=== PATIENT | male | born 1940 | race Caucasian/White ===

== ENCOUNTER 2018-06-01 09:44 | Inpatient (IN) ==
[2018-06-01] MEDS ORDERED: ASPIRIN 325 MG TABLET PO STA ×2 (10:22→11:11)
[2018-06-01] MEDS ORDERED: ONDANSETRON 4 MG/2 ML VIAL IV STA (10:22)
[2018-06-01 10:30] LABS: Basophils # 0.1 10*3/uL (0.0-0.2); Basophils % 0.4 % (0.0-0.8); Eosinophils # 0.5 10*3/uL (0.0-0.87); Eosinophils % 3.9 % (0.00-10.9); Hemoglobin 9.6 GM/DL (14.0-18.0); Immature Granulocytes % 0.5 %; Immature Granulocytes Absolute 0.06 #; Mean Corpuscular Hemoglobin 30 PG (27-34); Mean Corpuscular Volume 98.1 FL (87-102); Mean Platelet Volume 10.2 FL (9.6-12.0); Monocytes % 8.8 % (1.7-12.7); Neutrophils # 8.9 10*3/uL (1.4-7.4); Neutrophils % 77.4 % (38.7-73.9); Platelet Count 273 T/CUMM (130-400); Red Blood Count 3.16 MC/CUMM (3.8-5.5); Red Cell Distribution Width 13.2 % (9.3-17.3); White Blood Count 11.5 T/CUMM (4-12)
[2018-06-01 10:42] LABS: Albumin 3.3 G/DL (3.4-5.0); Bilirubin,Total 0.5 MG/DL (0.2-1.0); Calcium 8.5 MG/DL (8.5-10.1); Osmolality,Calculated 285.1 MOS/KG (273-304); Potassium 5.1 MMOL/L (3.5-5.1); Total Protein 7.4 G/DL (6.4-8.3)
[2018-06-01 10:43] LABS: PT Patient Result 10.7 SECS; Partial Thromboplastin Time 28.6 SECS (0-40)
[2018-06-01] MEDS ORDERED: NITROGLYCERIN 2% OINT 1 INCH/GM PACK TOP STA (11:11)
[2018-06-01] MEDS ORDERED: FUROSEMIDE 40 MG/4 ML VIAL IV STA (11:15)
[2018-06-01] MEDS ORDERED: PROMETHAZINE 25 MG/1 ML VIAL IM PRN (11:43)
[2018-06-01 11:48] LABS: Apearance,Urine CLEAR (Clear); Bilirubin,Urine Negative (Negative); Blood, Urine Negative (Negative); Glucose,Urine (UA) Negative (Negative); Ketones,Urine Negative (Negative); Mucus,Urine Occasional /LPF (Occasional); Nitrite,Urine Negative (Negative); Protein,Urine Negative; RBC,Urine <1 /HPF (0-4); Urine Color Straw (Yellow); Urine Specific Gravity 1.005 (1.001-1.035); Urine Urobilinogen < 2.0 EU/DL (0.2-1.0); WBC,Urine 1 /HPF (0-6)
[2018-06-01] MEDS ORDERED: DEXTROSE 50% 25 GM/50 ML VIAL IV PRN (12:53)
[2018-06-01] MEDS ORDERED: GLUCAGON 1 MG VIAL IM PRN (12:53)
[2018-06-01] MEDS: INSULIN LISPRO 100 UNIT/ML SUBCUT SCH ×2 (17:09→21:26)
[2018-06-01] MEDS: FUROSEMIDE 40 MG/4 ML VIAL IV SCH (17:10)
[2018-06-01] MEDS: ATORVASTATIN 40 MG TABLET PO SCH (21:18)
[2018-06-01] MEDS: CARVEDILOL 6.25 MG TABLET PO SCH (21:18)
[2018-06-01] MEDS: ENOXAPARIN 30 MG/0.3 ML SYRINGE SUBCUT SCH (21:19)
[2018-06-02 05:38] LABS: Basophils % 0.5 % (0.0-0.8); Eosinophils # 0.4 10*3/uL (0.0-0.87); Eosinophils % 5.9 % (0.00-10.9); Hematocrit 28.4 VOL% (42.0-52.0); Hemoglobin 8.8 GM/DL (14.0-18.0); Immature Granulocytes % 0.5 %; Immature Granulocytes Absolute 0.04 #; Lymphocytes # 1.2 10*3/uL (1.4-4.0); Mean Corpuscular Hemoglobin 31 PG (27-34); Mean Platelet Volume 10.4 FL (9.6-12.0); Monocytes # 0.8 10*3/uL (0.11-0.8); Monocytes % 11.4 % (1.7-12.7); Neutrophils # 4.8 10*3/uL (1.4-7.4); Neutrophils % 65.7 % (38.7-73.9); Platelet Count 230 T/CUMM (130-400); Red Blood Count 2.87 MC/CUMM (3.8-5.5); Red Cell Distribution Width 13.3 % (9.3-17.3); White Blood Count 7.3 T/CUMM (4-12)
[2018-06-02 06:12] LABS: Bilirubin,Total 0.8 MG/DL (0.2-1.0); Calcium 8.5 MG/DL (8.5-10.1); Potassium 5.1 MMOL/L (3.5-5.1); Risk Ratio 1.62; Thyroid Stimulating Hormone 1.58 uIU/ml (0.358-3.74); Total Protein 7.5 G/DL (6.4-8.3)
[2018-06-02] MEDS: INSULIN LISPRO 100 UNIT/ML SUBCUT SCH ×4 (07:43→22:15)
[2018-06-02] MEDS: FUROSEMIDE 40 MG/4 ML VIAL IV SCH ×2 (07:57→16:18)
[2018-06-02] MEDS: LISINOPRIL 20 MG TABLET PO SCH (08:02)
[2018-06-02] MEDS: PANTOPRAZOLE 40 MG TABLET PO SCH (08:03)
[2018-06-02] MEDS: AMIODARONE 200 MG TABLET PO SCH (08:03)
[2018-06-02] MEDS: ISOSORBIDE MONONITRATE 30 MG TABLET PO SCH (08:03)
[2018-06-02] MEDS: CARVEDILOL 6.25 MG TABLET PO SCH ×2 (08:03→22:14)
[2018-06-02] MEDS: ASPIRIN EC 81 MG TABLET PO SCH (08:03)
[2018-06-02] MEDS: MAGNESIUM HYDROXIDE SUSP 30 ML UDCUP PO PRN ×2 (09:08→22:14)
[2018-06-02 14:02] LABS: Basophils # 0.1 10*3/uL (0.0-0.2); Basophils % 0.6 % (0.0-0.8); Eosinophils # 0.4 10*3/uL (0.0-0.87); Eosinophils % 5.6 % (0.00-10.9); Hematocrit 28.5 VOL% (42.0-52.0); Immature Granulocytes % 0.4 %; Immature Granulocytes Absolute 0.03 #; Lymphocytes # 0.9 10*3/uL (1.4-4.0); Lymphocytes % 11.4 % (21.2-54.2); Mean Corpuscular HGB Conc 31.6 GM/DL (32-36); Mean Corpuscular Hemoglobin 31 PG (27-34); Monocytes # 0.8 10*3/uL (0.11-0.8); Monocytes % 9.7 % (1.7-12.7); Neutrophils # 5.6 10*3/uL (1.4-7.4); Neutrophils % 72.3 % (38.7-73.9); Platelet Count 248 T/CUMM (130-400); Red Blood Count 2.88 MC/CUMM (3.8-5.5); Red Cell Distribution Width 13.4 % (9.3-17.3); White Blood Count 7.7 T/CUMM (4-12)
[2018-06-02 14:40] LABS: Folate 11.4 NG/ML (5.4-24.0); Vitamin B12 384 PG/ML (211-911)
[2018-06-02] MEDS: ENOXAPARIN 30 MG/0.3 ML SYRINGE SUBCUT SCH (22:14)
[2018-06-02] MEDS: ATORVASTATIN 40 MG TABLET PO SCH (22:14)
[2018-06-03 06:26] LABS: Basophils % 0.5 % (0.0-0.8); Eosinophils # 0.4 10*3/uL (0.0-0.87); Eosinophils % 4.3 % (0.00-10.9); Hematocrit 27.8 VOL% (42.0-52.0); Hemoglobin 8.7 GM/DL (14.0-18.0); Immature Granulocytes % 0.5 %; Immature Granulocytes Absolute 0.04 #; Lymphocytes # 0.7 10*3/uL (1.4-4.0); Lymphocytes % 8.5 % (21.2-54.2); Mean Corpuscular HGB Conc 31.3 GM/DL (32-36); Mean Corpuscular Hemoglobin 31 PG (27-34); Mean Corpuscular Volume 99.3 FL (87-102); Mean Platelet Volume 10.4 FL (9.6-12.0); Monocytes % 11.5 % (1.7-12.7); Neutrophils # 6.3 10*3/uL (1.4-7.4); Neutrophils % 74.7 % (38.7-73.9); Platelet Count 207 T/CUMM (130-400); Red Cell Distribution Width 13.1 % (9.3-17.3); White Blood Count 8.5 T/CUMM (4-12)
[2018-06-03 06:45] LABS: Calcium 8.6 MG/DL (8.5-10.1); Osmolality,Calculated 287.2 MOS/KG (273-304); Potassium 5.1 MMOL/L (3.5-5.1)
[2018-06-03] MEDS: INSULIN LISPRO 100 UNIT/ML SUBCUT SCH ×4 (07:25→22:16)
[2018-06-03] MEDS: FUROSEMIDE 40 MG/4 ML VIAL IV SCH (08:57)
[2018-06-03] MEDS: LISINOPRIL 20 MG TABLET PO SCH (09:00)
[2018-06-03] MEDS: PANTOPRAZOLE 40 MG TABLET PO SCH (09:00)
[2018-06-03] MEDS: ASPIRIN EC 81 MG TABLET PO SCH (09:00)
[2018-06-03] MEDS: CARVEDILOL 6.25 MG TABLET PO SCH ×2 (09:00→22:16)
[2018-06-03] MEDS: ISOSORBIDE MONONITRATE 30 MG TABLET PO SCH (09:00)
[2018-06-03] MEDS: AMIODARONE 200 MG TABLET PO SCH (09:07)
[2018-06-03 09:20] LABS: Hemoglobin A1 (Alkaline) 97.9 % (96.5-98.5); Hemoglobin A2 (Alkaline) 2.1 % (1.5-3.5)
[2018-06-03 09:45] LABS: Sedimentation Rate-Westergren 110 MM/HR (0-20)
[2018-06-03 10:51] LABS: Folate 10.2 NG/ML (5.4-24.0)
[2018-06-03 11:59] LABS: % Iron Saturation 14.7 % (18-50)
[2018-06-03 12:33] LABS: Apearance,Urine CLEAR (Clear); Bilirubin,Urine Negative (Negative); Blood, Urine Negative (Negative); Glucose,Urine (UA) Negative (Negative); Ketones,Urine Negative (Negative); Mucus,Urine Occasional /LPF (Occasional); Nitrite,Urine Negative (Negative); Protein,Urine Negative; RBC,Urine <1 /HPF (0-4); Urine Color Straw (Yellow); Urine Specific Gravity 1.006 (1.001-1.035); Urine Urobilinogen < 2.0 EU/DL (0.2-1.0)
[2018-06-03] MEDS: MAGNESIUM HYDROXIDE SUSP 30 ML UDCUP PO PRN (15:03)
[2018-06-03] MEDS: ENOXAPARIN 30 MG/0.3 ML SYRINGE SUBCUT SCH (22:16)
[2018-06-03] MEDS: ATORVASTATIN 40 MG TABLET PO SCH (22:16)
[2018-06-04 04:40] LABS: Basophils % 0.4 % (0.0-0.8); Eosinophils # 0.2 10*3/uL (0.0-0.87); Eosinophils % 2.7 % (0.00-10.9); Hematocrit 27.1 VOL% (42.0-52.0); Hemoglobin 8.3 GM/DL (14.0-18.0); Immature Granulocytes % 0.3 %; Immature Granulocytes Absolute 0.02 #; Lymphocytes # 0.8 10*3/uL (1.4-4.0); Lymphocytes % 10.1 % (21.2-54.2); Mean Corpuscular HGB Conc 30.6 GM/DL (32-36); Mean Corpuscular Hemoglobin 30 PG (27-34); Mean Corpuscular Volume 97.8 FL (87-102); Mean Platelet Volume 10.2 FL (9.6-12.0); Monocytes % 13.3 % (1.7-12.7); Neutrophils # 5.4 10*3/uL (1.4-7.4); Neutrophils % 73.2 % (38.7-73.9); Platelet Count 205 T/CUMM (130-400); Red Blood Count 2.77 MC/CUMM (3.8-5.5); Red Cell Distribution Width 13.2 % (9.3-17.3); White Blood Count 7.4 T/CUMM (4-12)
[2018-06-04 04:59] LABS: Calcium 8.6 MG/DL (8.5-10.1); Osmolality,Calculated 285.7 MOS/KG (273-304)
[2018-06-04] MEDS: ONDANSETRON 4 MG/2 ML VIAL IV PRN (08:33)
[2018-06-04] MEDS: AMIODARONE 200 MG TABLET PO SCH (09:23)
[2018-06-04] MEDS: ISOSORBIDE MONONITRATE 30 MG TABLET PO SCH (09:23)
[2018-06-04] MEDS: ASPIRIN EC 81 MG TABLET PO SCH (09:23)
[2018-06-04] MEDS: INSULIN LISPRO 100 UNIT/ML SUBCUT SCH ×4 (09:23→21:16)
[2018-06-04] MEDS: PANTOPRAZOLE 40 MG TABLET PO SCH (09:23)
[2018-06-04] MEDS: FLUTICASONE 50 MCG NASAL SPRAY 16 GM BOTTLE BOTH NARES SCH (09:23)
[2018-06-04] MEDS: LORATADINE 10 MG TABLET PO SCH (09:23)
[2018-06-04] MEDS: CARVEDILOL 6.25 MG TABLET PO SCH ×2 (09:23→21:16)
[2018-06-04] MEDS ORDERED: SODIUM CHLORIDE 0.9% 1,000 ML IV PRN (13:25)
[2018-06-04] MEDS ORDERED: AZITHROMYCIN 250 MG TABLET PO ONE (13:26)
[2018-06-04] MEDS ORDERED: MELATONIN 3 MG TABLET PO ONE (20:21)
[2018-06-04] MEDS: ENOXAPARIN 30 MG/0.3 ML SYRINGE SUBCUT SCH (21:15)
[2018-06-04] MEDS: ATORVASTATIN 40 MG TABLET PO SCH (21:15)
[2018-06-04 21:59] LABS: Hematocrit 30.5 VOL% (42.0-52.0); Hemoglobin 9.8 GM/DL (14.0-18.0)
[2018-06-05 05:37] LABS: Basophils % 0.3 % (0.0-0.8); Eosinophils # 0.1 10*3/uL (0.0-0.87); Eosinophils % 0.8 % (0.00-10.9); Hematocrit 30.1 VOL% (42.0-52.0); Hemoglobin 9.7 GM/DL (14.0-18.0); Immature Granulocytes % 0.3 %; Immature Granulocytes Absolute 0.02 #; Lymphocytes # 0.6 10*3/uL (1.4-4.0); Lymphocytes % 9.5 % (21.2-54.2); Mean Corpuscular HGB Conc 32.2 GM/DL (32-36); Mean Corpuscular Hemoglobin 31 PG (27-34); Mean Corpuscular Volume 95.3 FL (87-102); Mean Platelet Volume 10.2 FL (9.6-12.0); Monocytes # 0.8 10*3/uL (0.11-0.8); Monocytes % 13.9 % (1.7-12.7); Neutrophils # 4.4 10*3/uL (1.4-7.4); Neutrophils % 75.2 % (38.7-73.9); Platelet Count 178 T/CUMM (130-400); Red Blood Count 3.16 MC/CUMM (3.8-5.5); Red Cell Distribution Width 14.9 % (9.3-17.3); White Blood Count 5.9 T/CUMM (4-12)
[2018-06-05 06:00] LABS: Calcium 8.9 MG/DL (8.5-10.1); Osmolality,Calculated 282.9 MOS/KG (273-304); Potassium 5.3 MMOL/L (3.5-5.1)
[2018-06-05] MEDS: AZITHROMYCIN 250 MG TABLET PO SCH (09:18)
[2018-06-05] MEDS: ASPIRIN EC 81 MG TABLET PO SCH (09:18)
[2018-06-05] MEDS: AMIODARONE 200 MG TABLET PO SCH (09:18)
[2018-06-05] MEDS: CARVEDILOL 6.25 MG TABLET PO SCH (09:18)
[2018-06-05] MEDS: LORATADINE 10 MG TABLET PO SCH (09:18)
[2018-06-05] MEDS: ISOSORBIDE MONONITRATE 30 MG TABLET PO SCH (09:18)
[2018-06-05] MEDS: PANTOPRAZOLE 40 MG TABLET PO SCH (09:18)
[2018-06-05] MEDS: FLUTICASONE 50 MCG NASAL SPRAY 16 GM BOTTLE BOTH NARES SCH (09:19)
[2018-06-05] MEDS: INSULIN LISPRO 100 UNIT/ML SUBCUT SCH ×4 (09:20→22:09)
[2018-06-05] MEDS: ATORVASTATIN 40 MG TABLET PO SCH (22:08)
[2018-06-05] MEDS: ENOXAPARIN 30 MG/0.3 ML SYRINGE SUBCUT SCH (22:09)
[2018-06-05] MEDS: NEBIVOLOL 5 MG TABLET PO SCH ×2 (22:12→22:37)
[2018-06-05] MEDS: diphenhydrAMINE CAP 50 MG CAPSULE PO PRN (22:37)
[2018-06-06 05:20] LABS: Basophils % 0.3 % (0.0-0.8); Eosinophils # 0.1 10*3/uL (0.0-0.87); Eosinophils % 1.9 % (0.00-10.9); Hematocrit 31.2 VOL% (42.0-52.0); Hemoglobin 9.7 GM/DL (14.0-18.0); Immature Granulocytes % 0.3 %; Immature Granulocytes Absolute 0.02 #; Lymphocytes # 0.6 10*3/uL (1.4-4.0); Lymphocytes % 8.6 % (21.2-54.2); Mean Corpuscular HGB Conc 31.1 GM/DL (32-36); Mean Corpuscular Hemoglobin 30 PG (27-34); Mean Corpuscular Volume 94.8 FL (87-102); Mean Platelet Volume 10.4 FL (9.6-12.0); Monocytes # 0.9 10*3/uL (0.11-0.8); Monocytes % 14.5 % (1.7-12.7); Neutrophils # 4.8 10*3/uL (1.4-7.4); Neutrophils % 74.4 % (38.7-73.9); Platelet Count 189 T/CUMM (130-400); Red Blood Count 3.29 MC/CUMM (3.8-5.5); Red Cell Distribution Width 14.7 % (9.3-17.3); White Blood Count 6.5 T/CUMM (4-12)
[2018-06-06 05:33] LABS: Calcium 8.3 MG/DL (8.5-10.1); Osmolality,Calculated 278.4 MOS/KG (273-304); Potassium 5.4 MMOL/L (3.5-5.1)
[2018-06-06] MEDS: LORATADINE 10 MG TABLET PO SCH (09:32)
[2018-06-06] MEDS: AMIODARONE 200 MG TABLET PO SCH (09:32)
[2018-06-06] MEDS: AZITHROMYCIN 250 MG TABLET PO SCH (09:32)
[2018-06-06] MEDS: ASPIRIN EC 81 MG TABLET PO SCH (09:32)
[2018-06-06] MEDS: NEBIVOLOL 5 MG TABLET PO SCH (09:32)
[2018-06-06] MEDS: PANTOPRAZOLE 40 MG TABLET PO SCH (09:32)
[2018-06-06] MEDS: INSULIN LISPRO 100 UNIT/ML SUBCUT SCH ×4 (09:32→20:45)
[2018-06-06] MEDS: FLUTICASONE 50 MCG NASAL SPRAY 16 GM BOTTLE BOTH NARES SCH (09:33)
[2018-06-06] MEDS: ISOSORBIDE MONONITRATE 30 MG TABLET PO SCH (09:35)
[2018-06-06] MEDS ORDERED: FUROSEMIDE 40 MG/4 ML VIAL IV ONE ×2 (12:15→20:25)
[2018-06-06] MEDS: MILRINONE 20 MG/100 ML PREMIX IV SCH (15:40)
[2018-06-06] MEDS: ENOXAPARIN 30 MG/0.3 ML SYRINGE SUBCUT SCH (20:46)
[2018-06-06] MEDS: ATORVASTATIN 40 MG TABLET PO SCH (20:46)
[2018-06-06] MEDS: diphenhydrAMINE CAP 50 MG CAPSULE PO PRN (20:46)
[2018-06-06] MEDS ORDERED: metOLazone 5 MG TABLET PO ONE (23:30)
[2018-06-07] MEDS ORDERED: MORPHINE 4 MG/1 ML VIAL IV PRN (03:11)
[2018-06-07] MEDS ORDERED: NITROGLYCERIN SL 0.4 MG TABLET SL PRN (03:11)
[2018-06-07] MEDS: NITROGLYCERIN SL 0.4 MG TABLET SL PRN ×2 (03:14→03:22)
[2018-06-07] MEDS ORDERED: MORPHINE 4 MG/1 ML VIAL ONE (03:14)
[2018-06-07 03:24] LABS: Basophils % 0.1 % (0.0-0.8); Eosinophils % 0.3 % (0.00-10.9); Hematocrit 29.7 VOL% (42.0-52.0); Hemoglobin 9.4 GM/DL (14.0-18.0); Immature Granulocytes % 0.3 %; Immature Granulocytes Absolute 0.02 #; Lymphocytes # 0.4 10*3/uL (1.4-4.0); Lymphocytes % 5.7 % (21.2-54.2); Mean Corpuscular HGB Conc 31.6 GM/DL (32-36); Mean Corpuscular Hemoglobin 30 PG (27-34); Mean Corpuscular Volume 94.9 FL (87-102); Mean Platelet Volume 10.4 FL (9.6-12.0); Monocytes # 0.8 10*3/uL (0.11-0.8); Monocytes % 11.8 % (1.7-12.7); Neutrophils # 5.7 10*3/uL (1.4-7.4); Neutrophils % 81.8 % (38.7-73.9); Platelet Count 207 T/CUMM (130-400); Red Blood Count 3.13 MC/CUMM (3.8-5.5); Red Cell Distribution Width 14.4 % (9.3-17.3)
[2018-06-07 03:37] LABS: Calcium 8.8 MG/DL (8.5-10.1); Osmolality,Calculated 280.8 MOS/KG (273-304); Potassium 5.4 MMOL/L (3.5-5.1)
[2018-06-07] MEDS: ONDANSETRON 4 MG/2 ML VIAL IV PRN (04:20)
[2018-06-07] MEDS ORDERED: ALPRAZolam 0.25 MG TABLET PO PRN (04:21)
[2018-06-07] MEDS ORDERED: FUROSEMIDE 100 MG/10 ML VIAL IV ONE (04:31)
[2018-06-07] MEDS: NITROGLYCERIN 2% OINT 1 INCH/GM PACK TOP SCH ×4 (04:40→17:17)
[2018-06-07] MEDS ORDERED: NITROGLYCERIN 2% OINT 1 INCH/GM PACK TOP ONE (04:43)
[2018-06-07] MEDS: INSULIN LISPRO 100 UNIT/ML SUBCUT SCH ×4 (07:22→21:08)
[2018-06-07] MEDS: MILRINONE 20 MG/100 ML PREMIX IV SCH ×2 (07:40→20:53)
[2018-06-07] MEDS: AMIODARONE 200 MG TABLET PO SCH (08:50)
[2018-06-07] MEDS: ASPIRIN EC 81 MG TABLET PO SCH (08:50)
[2018-06-07] MEDS: LORATADINE 10 MG TABLET PO SCH (08:50)
[2018-06-07] MEDS: NEBIVOLOL 5 MG TABLET PO SCH (08:50)
[2018-06-07] MEDS: AZITHROMYCIN 250 MG TABLET PO SCH (08:50)
[2018-06-07] MEDS: ISOSORBIDE MONONITRATE 30 MG TABLET PO SCH (08:50)
[2018-06-07] MEDS: PANTOPRAZOLE 40 MG TABLET PO SCH (08:50)
[2018-06-07] MEDS: FLUTICASONE 50 MCG NASAL SPRAY 16 GM BOTTLE BOTH NARES SCH (09:02)
[2018-06-07] MEDS: ATORVASTATIN 40 MG TABLET PO SCH (21:07)
[2018-06-07] MEDS: ENOXAPARIN 30 MG/0.3 ML SYRINGE SUBCUT SCH (21:08)
[2018-06-08] MEDS: NITROGLYCERIN 2% OINT 1 INCH/GM PACK TOP SCH ×3 (00:52→12:14)
[2018-06-08] MEDS ORDERED: PROPOFOL 1,000 MG/100 ML BOTTLE IV ONE (03:23)
[2018-06-08] MEDS: PROPOFOL 1,000 MG/100 ML BOTTLE IV SCH ×3 (03:30→12:17)
[2018-06-08] MEDS: NOREPINEPHRINE 8 MG in SODIUM CHLORIDE 0.9% 242 ML IV PRN ×2 (03:30→08:46)
[2018-06-08 03:57] LABS: Basophils % 0.1 % (0.0-0.8); Eosinophils % 0.1 % (0.00-10.9); Hemoglobin 9.4 GM/DL (14.0-18.0); Immature Granulocytes % 1.4 %; Immature Granulocytes Absolute 0.11 #; Lymphocytes % 12.4 % (21.2-54.2); Mean Corpuscular HGB Conc 30.3 GM/DL (32-36); Mean Corpuscular Hemoglobin 30 PG (27-34); Mean Corpuscular Volume 98.1 FL (87-102); Mean Platelet Volume 11.1 FL (9.6-12.0); Monocytes # 0.9 10*3/uL (0.11-0.8); Monocytes % 11.3 % (1.7-12.7); NRBC # 0.03 10*3/uL; Neutrophils # 5.8 10*3/uL (1.4-7.4); Neutrophils % 74.7 % (38.7-73.9); Platelet Count 162 T/CUMM (130-400); Red Blood Count 3.16 MC/CUMM (3.8-5.5); Red Cell Distribution Width 14.4 % (9.3-17.3); White Blood Count 7.8 T/CUMM (4-12)
[2018-06-08 04:00] LABS: Calcium 8.2 MG/DL (8.5-10.1); Osmolality,Calculated 282.9 MOS/KG (273-304); Potassium 5.6 MMOL/L (3.5-5.1)
[2018-06-08 04:41] LABS: Pt O2 Delivery Device Ventilator
[2018-06-08 04:42] LABS: ABG Base Excess -10.6 MMOL/L (-2.5-2.5); ABG Oxygen Saturation 95.3 % (95-100); ABG PCO2 44.7 MM HG (35-48); ABG TCO2 16.3 MMOL/L (23-27)
[2018-06-08 04:45] LABS: ABG PH 7.193 (7.35-7.45)
[2018-06-08 05:53] VITALS: BP 91/42
[2018-06-08] MEDS ORDERED: SODIUM BICARB INJ 50 MEQ in SODIUM CHLORIDE 0.45% 1,000 ML IV SCH (06:30)
[2018-06-08 07:07] LABS: Anisocytosis 1+; Platelet Estimate Adequate
[2018-06-08 07:08] LABS: Poikilocytosis Slight
[2018-06-08 07:19] LABS: ABG Base Excess -8.4 MMOL/L (-2.5-2.5); ABG HCO3 17.7 MMOL/L (20-26); ABG Oxygen Saturation 99.6 % (95-100); ABG PCO2 37.7 MM HG (35-48); ABG PH 7.281 (7.35-7.45); ABG TCO2 16.4 MMOL/L (23-27); Allen Test Positive; Pt O2 Delivery Device Ventilator
[2018-06-08] MEDS: INSULIN LISPRO 100 UNIT/ML SUBCUT SCH ×2 (07:29→12:14)
[2018-06-08] MEDS: MILRINONE 20 MG/100 ML PREMIX IV SCH ×3 (07:50→15:26)
[2018-06-08] MEDS: NEBIVOLOL 5 MG TABLET PO SCH (08:47)
[2018-06-08] MEDS: ISOSORBIDE MONONITRATE 30 MG TABLET PO SCH (08:48)
[2018-06-08] MEDS: AMIODARONE 200 MG TABLET PO SCH (09:36)
[2018-06-08] MEDS: FLUTICASONE 50 MCG NASAL SPRAY 16 GM BOTTLE BOTH NARES SCH (09:36)
[2018-06-08] MEDS: PANTOPRAZOLE 40 MG TABLET PO SCH (09:36)
[2018-06-08] MEDS: ASPIRIN EC 81 MG TABLET PO SCH (09:36)
[2018-06-08] MEDS: LORATADINE 10 MG TABLET PO SCH (09:36)
[2018-06-08] MEDS ORDERED: FUROSEMIDE INJ 240 MG in SODIUM CHLORIDE 0.9% 50 ML IV ONE (13:45)
[2018-06-08] MEDS ORDERED: MORPHINE 4 MG/1 ML VIAL IV PRN (16:09)
[2018-06-09] MEDS ORDERED: PANTOPRAZOLE 40 MG VIAL IV SCH (09:00)
== END 2018-06-08 16:46 | disposition expired | DRG 682 ==
LOC: N.ED 09:44 → N.EDINP 11:43 → SUATTDRO 11:43 → N.EDINP 12:38 → N.TELES 12:56 → N.CC 06-06 15:41
PROVIDERS: ADMIT Internal Medicine Nephrology; ATTEND Internal Medicine Cardiovascular Disease